=== PATIENT | male | born 1955 | race Caucasian/White ===

== ENCOUNTER 2019-01-20 18:11 | Emergency (ER) | payer SELFPAY ==
[~2019-01-20] VITALS: Wt 83.4 kg
[2019-01-20] MEDS ORDERED: ACET-141 PO (21:02)
--- NOTE | 2019-01-20 21:04 | ERD ---
ER Documentation Chief Complaint Chief Complaint headache x 1 month ROS All systems reviewed and are negative except as per history of present illness. Medications Home Meds Active Scripts Acetaminophen* (Acetaminophen*) 500 MG Extra Strength Tablet, 500 MG PO Q4H PRN for PAIN AND OR ELEVATED TEMP, #30 TAB Prov:MARIAELENA MENDEZ DO 01/20/19 Allergies Allergies: Coded Allergies: No Known Drug Allergies (Verified Allergy, Unknown, 01/20/19) PMhx/Soc Hx Alcohol Use: No Hx Substance Use: No Hx Tobacco Use: No Smoking Status: Never smoker Physical Exam Vitals Vital Signs Date Temp Pulse Resp B/P (MAP) Pulse Ox O2 O2 Flow FiO2 Time Delivery Rate 01/20/19 98.7 81 18 /149 89 18:21 Physical Exam Const: No acute distress Head: Atraumatic Eyes: Normal Conjunctiva ENT: Normal External Ears, Nose and Mouth. Neck: Full range of motion. No meningismus. Resp: Clear to auscultation bilaterally Cardio: Regular rate and rhythm, no murmurs Abd: Soft, non tender, non distended. Normal bowel sounds Skin: No petechiae or rashes Back: No midline or flank tenderness Ext: No cyanosis, or edema Neur: Awake and alert Psych: Normal Mood and Affect Departure Diagnosis: Primary Impression: Headache Headache type: unspecified Headache chronicity pattern: unspecified pattern Intractability: not intractable Qualified Codes: R51 - Headache Condition: Fair Patient Instructions: Self-Care for Headaches Referrals: COMMUNITY CLINICS YOU HAVE RECEIVED A MEDICAL SCREENING EXAM AND THE RESULTS INDICATE THAT YOU DO NOT HAVE A CONDITION THAT REQUIRES URGENT TREATMENT IN THE EMERGENCY DEPARTMENT. FURTHER EVALUATION AND TREATMENT OF YOUR CONDITION CAN WAIT UNTIL YOU ARE SEEN IN YOUR DOCTORS OFFICE WITHIN THE NEXT 1-2 DAYS. IT IS YOUR RESPONSIBILITY TO MAKE AN APPOINTMENT FOR FOLOW-UP CARE. IF YOU HAVE A PRIMARY DOCTOR --you should call your primary doctor and schedule an appointment IF YOU DO NOT HAVE A PRIMARY DOCTOR YOU CAN CALL OUR PHYSICIAN REFERRAL HOTLINE AT IF YOU CAN NOT AFFORD TO SEE A PHYSICIAN YOU CAN CHOSE FROM THE FOLLOWING [facility] [address] [facility]. [facility] [address] [facility]. [facility] [address] [facility] [facility] [address] [facility]. [facility] [address] [facility] [facility]. [address] Additional Instructions: Llame al doctor MAANA y bg devendra JEAN MARIE PARA DENTRO DE 1-2 CRAIN.Dgale a la secretaria que nosotros le instruimos hacer esta jean marie.Avise o llame si perera condicin se empeora antes de la jean marie. Regresa aqui si peor o no mejor. MARIAELENA MENDEZ DO January 20, 2019 21:04
[2019-01-20 21:15] VITALS: BP 143/94; PULSE 66; RESP 19
[2019-01-20] MEDS ORDERED: METH750T93 PO (21:15)
== END 2019-01-20 21:17 | disposition home or self-care (01) ==
LOC: FTE 18:11
DX: R51 Headache (principal)
CPT/HCPCS: 70450